=== PATIENT | female | born 2000 | race Caucasian/White ===

== ENCOUNTER 2019-10-27 23:54 | Emergency (ER) | payer SELFPAY ==
[~2019-10-27] VITALS: Ht 157.5 cm; Wt 63.1 kg
[2019-10-27 23:56] VITALS: BP 132/68
[2019-10-28] MEDS ORDERED: LIDOCAINE 1%-EPI 1:100K, 20ML ONE (00:15)
[2019-10-28] MEDS ORDERED: LIDOCAINE 1%-EPI 1:100K, 20ML SQ ONE (00:30)
[2019-10-28] MEDS ORDERED: NEOSPORIN OINT. PKT 1 PACKET ONE (01:12)
== END 2019-10-28 01:28 | disposition home or self-care (01) ==
LOC: ED 10-28 01:01
DX: S81.011A Laceration without foreign body, right knee, initial encounter (principal); G89.11 Acute pain due to trauma; W01.0XXA Fall on same level from slipping, tripping and stumbling without subsequent striking against object, initial encounter; Y93.01 Activity, walking, marching and hiking; Y92.89 Other specified places as the place of occurrence of the external cause; Y99.8 Other external cause status
CPT/HCPCS: 12031; 99284